=== PATIENT | female | born 1970 | race Caucasian/White ===

== ENCOUNTER 2017-12-16 12:15 | Inpatient (IN) | payer OTHER ==
[~2017-12-16] VITALS: Ht 165.1 cm; Wt 136.1 kg
[2017-12-22] MEDS ORDERED: CODE1TAB37 PO (11:39)
== END 2017-12-22 12:34 | disposition home or self-care, planned readmission (81) | DRG 743 ==
LOC: OB/GYN 12-19 05:15 → O/R 12-19 05:15 → OB/GYN 12-19 07:00
PROVIDERS: Obstetrics & Gynecology
PROC: 0UT70ZZ Resection of Bilateral Fallopian Tubes, Open Approach (ICD-10-PCS; 2017-12-19)
PROC: 0TJB8ZZ Inspection of Bladder, Via Natural or Artificial Opening Endoscopic (ICD-10-PCS; 2017-12-19)
PROC: 0UT90ZZ Resection of Uterus, Open Approach (ICD-10-PCS; principal; 2017-12-19 07:00)
PROC: 0UT20ZZ Resection of Bilateral Ovaries, Open Approach (ICD-10-PCS; 2017-12-19 07:00)
DX: N92.1 Excessive and frequent menstruation with irregular cycle (principal); D25.1 Intramural leiomyoma of uterus; D25.2 Subserosal leiomyoma of uterus; N83.01 Follicular cyst of right ovary; D27.1 Benign neoplasm of left ovary; N83.8 Other noninflammatory disorders of ovary, fallopian tube and broad ligament